=== PATIENT | male | born 1955 | race Hispanic/Latino ===

== ENCOUNTER 2022-08-03 08:16 | Day surgery (SDC) | payer OTHER ==
[~2022-08-03] VITALS: Ht 162.6 cm; Wt 80.7 kg
[2022-08-03] MEDS ORDERED: 0.9%NACL 1000ML 1,000 ML IV ONE (09:32)
[2022-08-03 09:38] VITALS: BP 148/76
[2022-08-03] MEDS ORDERED: ASPI-1197 PO (10:10)
[2022-08-03] MEDS ORDERED: OMEG-61 PO (10:10)
[2022-08-03] MEDS ORDERED: METF-446 PO (10:10)
[2022-08-03] MEDS ORDERED: HYDR12.54 PO (10:10)
[2022-08-03] MEDS ORDERED: AMLO-257 PO (10:10)
[2022-08-03] MEDS ORDERED: LISI40TA9 PO (10:10)
[2022-08-03] MEDS ORDERED: TERA5CAP4 PO (10:10)
[2022-08-03] MEDS ORDERED: PROPOFOL 10 MG/ML 20ML VIAL IV ONE ×2 (11:30→12:17)
[2022-08-03 12:25] VITALS: BP 104/60
[2022-08-03 12:30] VITALS: BP 117/67
[2022-08-03 12:35] VITALS: BP 127/71
[2022-08-03 12:40] VITALS: BP 119/71
[2022-08-03 12:45] VITALS: BP 132/72
== END 2022-08-03 12:55 | disposition home or self-care (01) ==
LOC: DAH 08:16
PROVIDERS: ATTEND Internal Medicine Gastroenterology
DX: Z12.11 Encounter for screening for malignant neoplasm of colon (principal); K57.30 Diverticulosis of large intestine without perforation or abscess without bleeding; K64.0 First degree hemorrhoids; J43.9 Emphysema, unspecified; E11.9 Type 2 diabetes mellitus without complications; F17.210 Nicotine dependence, cigarettes, uncomplicated; Z20.822 Contact with and (suspected) exposure to COVID-19; Z79.84 Long term (current) use of oral hypoglycemic drugs; Z79.82 Long term (current) use of aspirin; Z86.010 Personal history of colon polyps; Z79.899 Other long term (current) drug therapy; Z98.890 Other specified postprocedural states
CPT/HCPCS: 82948; 87635; 45378; J7030 ×2; J2704 ×2; A4620; A4215 ×2; A4223; A4657 ×2; A7002; A4222; A4221; A4663; A4606

== ENCOUNTER → 2023-04-29 | Outpatient (CLI) | payer OTHER ==
[~2023-04-29] MED LIST: AMLO-257 PO; ASPI-1197 PO; HYDR12.54 PO; LISI40TA9 PO; METF-446 PO; OMEG-61 PO; TERA5CAP4 PO
[2023-04-29 08:36] LABS: BASOPHILS # (AUTO) 0.07 K/uL (0.00-0.20); BASOPHILS % (AUTO) 0.7 % (0.0-5.0); EOSINOPHILS % (AUTO) 2.1 % (0.0-8.0); HEMATOCRIT 45.6 % (42-54); IMMATURE GRANULOCYTE ABSOLUTE 0.03 K/uL (0-1); LYMPHOCYTES # (AUTO) 1.8 K/uL (1.0-4.8); LYMPHOCYTES % (AUTO) 19.1 % (21.0-51.0); MEAN CORPUSCULAR HEMOGLOBIN 28.3 pg (27.0-33.0); MEAN CORPUSCULAR HGB CONC 33.6 g/dL (32.0-36.0); MEAN CORPUSCULAR VOLUME 84.3 fL (79-99); MONOCYTES # (AUTO) 0.7 K/uL (0.1-1.0); MONOCYTES % (AUTO) 7.1 % (3.0-13.0); NEUTROPHILS # (AUTO) 6.7 K/uL (1.8-7.7); NEUTROPHILS % (AUTO) 70.7 % (40.0-77.0); PLATELET COUNT (AUTO) 126 K/uL (130-400); RED BLOOD CELL COUNT(AUTO) 5.41 MIL/uL (4.50-6.20); RED CELL DISTRIBUTION WIDTH 14.8 % (11.0-15.5); WHITE BLOOD COUNT (AUTO) 9.5 K/uL (4.8-10.8)
[2023-04-29 08:52] LABS: POTASSIUM 4.5 mmol/L (3.5-5.1)
== END | disposition home or self-care (01) ==
LOC: LAB 07:47
PROVIDERS: ATTEND Urology
DX: D30.02 Benign neoplasm of left kidney (principal); N28.1 Cyst of kidney, acquired
CPT/HCPCS: 36415; 80048; 85025

== ENCOUNTER → 2023-05-03 | Outpatient (CLI) | payer OTHER ==
[~2023-05-03] MED LIST changes: +IOHEXOL 350 MG/ML 100ML INFUS..BTL IV ONE
== END | disposition home or self-care (01) ==
LOC: RAH 07:45
PROVIDERS: ATTEND Urology
DX: K57.30 Diverticulosis of large intestine without perforation or abscess without bleeding (principal); D30.02 Benign neoplasm of left kidney; N28.1 Cyst of kidney, acquired
CPT/HCPCS: 74178; Q9967

== ENCOUNTER → 2024-09-04 | Outpatient (CLI) | payer OTHER ==
[~2024-09-04] MED LIST changes: -IOHEXOL 350 MG/ML 100ML INFUS..BTL IV ONE; +LISI40TA15 PO; -LISI40TA9 PO
--- NOTE | 2024-09-05 05:56 | HMCIMG ---
EXAMINATION: ULTRASOUND OF THE RETROPERITONEUM. CLINICAL HISTORY: Renal cysts. COMPARISON: None. TECHNIQUE: Real-time grayscale ultrasound images of the kidneys. FINDINGS: The kidneys are normal in caliber, the right kidney measures 11.5 x 5.3 x 4.4 cm and the left kidney measures 11.6 x 5.1 x 5.3 cm in its craniocaudal, AP, and transverse dimensions respectively. There is normal renal cortical thickness, and cortical echogenicity. There is no renal calculus or hydronephrosis. There are simple cortical cysts that measure 2.7 x 2.0 x 2.3 cm and 2.2 x 2.2 x 1.9 cm in the left renal mid pole. The urinary bladder is normal in caliber and wall thickness (0.51 cm). There are no calculi in the urinary bladder. There are floating internal echoes. Pre-void volume is 226 cc and post-void volume is 97 cc. The prostate gland is bulky in caliber and measures 4.7 x 4.4 x 5.0 cm in the craniocaudal, AP, and transverse dimensions respectively with a volume of 55 cc. There are calcifications. IMPRESSION: Left renal simple cortical cysts. Moderate prostatic hypertrophy with calcifications. Cystitis. Significant post void residue. /[place]
== END | disposition home or self-care (01) ==
LOC: RAH 12:12
PROVIDERS: ATTEND Urology
DX: N40.0 Benign prostatic hyperplasia without lower urinary tract symptoms (principal); N28.1 Cyst of kidney, acquired; N30.90 Cystitis, unspecified without hematuria
CPT/HCPCS: 76770